=== PATIENT | female | born 1985 | race Caucasian/White ===

== ENCOUNTER 2017-02-08 15:27 | Observation (INO) | payer BC ==
[2017-02-08] MEDS ORDERED: Acetaminophen 500 MG Tab PO ONE (17:00)
== END 2017-02-08 16:54 | disposition home or self-care (01) ==
LOC: MW.OBCHECK 15:27 → MW.OB 15:29 → MW.OBCHECK 15:35
PROVIDERS: ADMIT Obstetrics & Gynecology; ATTEND Obstetrics & Gynecology
DX: O26.892 Other specified pregnancy related conditions, second trimester (principal); R51 Headache; R10.84 Generalized abdominal pain
CPT/HCPCS: 59025; 81003; A9270; G0378

== ENCOUNTER 2017-05-09 04:40 | Inpatient (IN) | payer BC ==
[2017-05-09] MEDS ORDERED: Nalbuphine 10 MG/1 ML Vial IVPUSH PRN (05:16)
[2017-05-09] MEDS ORDERED: Methylergonovine 0.2 MG/1 ML Amp IM PRN (05:16)
[2017-05-09] MEDS ORDERED: Carboprost Tromethamine 250 MCG/1 ML Amp IM PRN (05:16)
[2017-05-09] MEDS ORDERED: Water For Irrigation,Sterile 1,000 ML Container IRR PRN (05:16)
[2017-05-09] MEDS ORDERED: Sodium Chloride 0.9% 10 ML Syringe FLUSH PRN (05:16)
[2017-05-09] MEDS ORDERED: Sodium Chloride 0.9% 2.5 ML Syringe FLUSH PRN (05:16)
[2017-05-09] MEDS ORDERED: Lidocaine 1% 50 ML MDV INJECT PRN (05:16)
[2017-05-09] MEDS ORDERED: Misoprostol 200 MCG Tab PO PRN (05:16)
[2017-05-09] MEDS ORDERED: Terbutaline 1 MG/ML SDV SUBCUT PRN (05:16)
[2017-05-09] MEDS ORDERED: Oxytocin/Lactated Ringers 30 UNIT/500 ML BAG IV SCH (05:30)
[2017-05-09] MEDS: Lactated Ringers 1,000 ML IV SCH ×3 (05:45→20:49)
[2017-05-09] MEDS: Oxytocin/Lactated Ringers 30 UNIT/500 ML BAG IV SCH (06:12)
[2017-05-09] MEDS: Butorphanol 1 MG/ML SDV IVPUSH PRN ×2 (16:08→19:29)
--- NOTE | 2017-05-09 22:26 | PCM.PREANE ---
Preanesthetic Assessment - Anesthesia/Transfusion/Family Hx Anesthesia History: Prior Anesthesia Without Reaction Transfusion History: No Prior Transfusion(s) - Review of Systems General: No Symptoms Pulmonary: No Symptoms Cardiovascular: No Symptoms Gastrointestinal: No symptoms Neurological: No Symptoms Other: Reports: None - Physical Assessment Height: 5 ft 9 in Weight: 97.522 kg ASA Class: 2 Mental Status: Alert & Oriented x3 Airway Class: Mallampati = 2 Dentition: Reports: Normal Dentition Thyro-Mental Finger Breadths: 3 Mouth Opening Finger Breadths: 3 ROM/Head Extension: Full Lungs: Clear to auscultation, Normal respiratory effort Cardiovascular: Regular Rate, Regular Rhythm - Lab Values: Laboratory Last Values WBC 12.63 K/uL (4.0-11.0) H 05/09/17 05:32 RBC 3.82 M/uL (4.30-5.90) L 05/09/17 05:32 Hgb 12.4 g/dL (12.0-16.0) 05/09/17 05:32 Hct 35.7 % (36.0-46.0) L 05/09/17 05:32 MCV 93.5 fL (80.0-98.0) 05/09/17 05:32 MCH 32.5 pg (27.0-32.0) H 05/09/17 05:32 MCHC 34.7 g/dL (31.0-37.0) 05/09/17 05:32 RDW Std Deviation 43.6 fl (28.0-62.0) 05/09/17 05:32 RDW Coeff of Bernadine 13 % (11.0-15.0) 05/09/17 05:32 Plt Count 222 K/uL (150-400) 05/09/17 05:32 MPV 9.70 fL (7.40-12.00) 05/09/17 05:32 Nucleated RBC % 0.0 /100WBC 05/09/17 05:32 Nucleated RBCs # 0 K/uL 05/09/17 05:32 Blood Type O NEGATIVE 05/09/17 05:32 Antibody Screen NEGATIVE 05/09/17 05:32 - Allergies Allergies/Adverse Reactions: Allergies Allergy/AdvReac Type Severity Reaction Status Date / Time cefaclor [From [facility]] Allergy Anaphylactic Verified 02/08/17 15:35 Shock - Acknowledgements Anesthesia Type Planned: Epidural Pt an Appropriate Candidate for the Planned Anesthesia: Yes Alternatives and Risks of Anesthesia Discussed w Pt/Guardian: Yes Pt/Guardian Understands and Agrees with Anesthesia Plan: Yes PreAnesthesia Questionnaire HEENT History: Reports: None Cardiovascular History: Reports: None Respiratory History: Reports: None Gastrointestinal History: Reports: GERD Genitourinary History: Reports: None SHIFT SUPERINTENDENT History: Reports: : 4 Para: 5 LMP (Approximate): Musculoskeletal History: Reports: None Neurological History: Reports: None Psychiatric History: Reports: Depression Endocrine/Metabolic History: Reports: Obesity/BMI 30+ Hematologic History: Reports: None Immunologic History: Reports: None Oncologic (Cancer) History: Reports: None Dermatologic History: Reports: None - Infectious Disease History Infectious Disease History: Reports: None - SUBSTANCE USE Smoking Status *Q: Current Every Day Smoker Tobacco Use Within Last Twelve Months: Cigarettes Second Hand Smoke Exposure: Yes Recreational Drug Use History: No - CURRENT (IN HOUSE) MEDS Current Meds: Current Medications Butorphanol Tartrate (Stadol) 1 mg IVPUSH ASDIRECTED PRN PRN Reason: Pain Last Admin: 05/09/17 19:29 Dose: 1 mg Carboprost Tromethamine (Hemabate Ds) 250 mcg IM ASDIRECTED PRN PRN Reason: Post Hemorrhage Lactated Ringer's (Ringers, Lactated) 1,000 mls @ 150 mls/hr IV ASDIRECTED MEÑO Last Admin: 05/09/17 20:49 Dose: 150 mls/hr Oxytocin/Lactated Ringer's (Pitocin In Lr 30 Units/500 Ml) 30 unit in 500 mls @ 2 mls/hr IV TITRATE MEÑO; 2 MUNITS/MIN PRN Reason: Protocol Last Titration: 05/09/17 20:55 Dose: 38 munits/min, 38 mls/hr Lidocaine HCl (Xylocaine 1%) 50 ml INJECT .ONCE PRN PRN Reason: Laceration repair Methylergonovine Maleate (Methergine) 0.2 mg IM ASDIRECTED PRN PRN Reason: Post Hemorrhage Misoprostol (Cytotec) 200 mcg PO .ONCE PRN PRN Reason: Post Hemorrhage Nalbuphine HCl (Nubain) 10 mg IVPUSH ASDIRECTED PRN PRN Reason: Pain (severe 7-10) Stop: 05/11/17 05:17 Sodium Chloride (Saline Flush) 10 ml FLUSH ASDIRECTED PRN PRN Reason: Keep Vein Open Sodium Chloride (Saline Flush) 2.5 ml FLUSH ASDIRECTED PRN PRN Reason: Keep Vein Open Sterile Water (Sterile Water For Irrigation) 1,000 ml IRR ASDIRECTED PRN PRN Reason: delivery Terbutaline Sulfate (Brethine) 0.25 mg SUBCUT ASDIRECTED PRN PRN Reason: Tacysystole Discontinued Medications Oxytocin/Lactated Ringer's (Pitocin In Lr 30 Units/500 Ml) 30 unit in 500 mls @ 999 mls/hr IV ASDIRECTED MEÑO PRN Reason: 999 MUNITS/MIN Stop: 05/09/17 06:01
[2017-05-09] MEDS ORDERED: fentaNYL 100 MCG/2 ML SDV ONE (22:29)
[2017-05-09] MEDS ORDERED: Ropivacaine HCl/PF 100 ML ONE (22:29)
[2017-05-10] MEDS: Oxytocin/Lactated Ringers 30 UNIT/500 ML BAG IV SCH (02:55)
[2017-05-10] MEDS ORDERED: Bupivacaine 0.5% 10 ML SDV ONE ×2 (04:53→06:59)
[2017-05-10] MEDS ORDERED: fentaNYL 100 MCG/2 ML SDV ONE (06:59)
[2017-05-10] MEDS ORDERED: Ropivacaine HCl/PF 100 ML ONE (06:59)
[2017-05-10] MEDS ORDERED: Ondansetron 4 MG/2 ML SDV IVPUSH PRN (07:14)
[2017-05-10] MEDS ORDERED: Bupivacaine 0.25% 30 ML SDV EPIDUR ONE (10:29)
[2017-05-10] MEDS ORDERED: Ibuprofen 800 MG Tab ONE (11:11)
[2017-05-10] MEDS ORDERED: Docusate Sodium 100 MG Cap PO PRN (11:18)
[2017-05-10] MEDS ORDERED: Acetaminophen 500 MG Tab PO PRN ×2 (11:18)
[2017-05-10] MEDS ORDERED: Ibuprofen 400 MG Tab PO PRN (11:18)
[2017-05-10] MEDS ORDERED: Benzocaine/Menthol 20%-0.5% Spray 78 GM Cannister TOP PRN (11:18)
[2017-05-10] MEDS ORDERED: Bisacodyl 10 MG Supp RECTAL PRN (11:18)
[2017-05-10] MEDS ORDERED: Witch Hazel Medicated Pads 40/Jar TOP PRN (11:18)
[2017-05-10] MEDS ORDERED: oxyCODONE 5 MG Tab PO PRN (11:18)
[2017-05-10] MEDS ORDERED: Lanolin 100% Cream 7 GM Tube TOP PRN (11:18)
--- NOTE | 2017-05-10 16:00 | OR ---
SURGEON: Chiquis Belcher M.D. DATE OF PROCEDURE: 05/10/2017 PREOPERATIVE DIAGNOSES: 1. 39-week intrauterine . 2. Maternal exhaustion. POSTOPERATIVE DIAGNOSES: 1. 39-week intrauterine . 2. Maternal exhaustion. PROCEDURE: Vacuum-assisted vaginal delivery, intact perineum. ESTIMATED BLOOD LOSS: 300 mL. ANESTHESIA: Epidural. COMPLICATIONS: Unknown. FINDINGS: Term male. scores of 7 at 1 minute and 9 at 5 minutes. Weight of 8 pounds 2 ounces. Spontaneous delivery, intact placenta, 3-vessel cord. DISPOSITION: to nursery and mom in LDRP, stable. DESCRIPTION OF PROCEDURE Vanessa is a 32-year-old, G4, P5, at 39 weeks' gestational age, who presented on the morning of 05/09/2017 for elective induction of labor under Dr. Conway's care. She was admitted with Pitocin induction and had amniotomy performed at approximately 1 p.m. I assumed care of the patient in the afternoon of 05/10/2017. Cervix was fairly thick to begin with and took some time to actually get the cervix ripe and the patient in active labor. She actually became more actively in labor after midnight. She had received an epidural and was comfortable with this. heart tones were in the 120s with variability. The following morning, the patient was found to be complete, 100% effaced, +2 station. Shortly before 9 a.m., she began pushing efforts and was able to push to a +2 station, but had difficulty delivering past this. She pushed for nearly 2 hours and was not able to move past the +2 station. She was requesting assistance with an operative vaginal delivery. I discussed the risks of vacuum- assisted vaginal delivery including the risks for infant cephalohematoma, intracranial bleeding, and increased risk for maternal vaginal trauma. The infant was felt to be MELANIA. Weight of approximately 3900 grams by Rai. Sagittal suture was able to be palpated. The vacuum was now positioned along with scalp. With the next push, I was able to insufflate the vacuum to within the green zone and with point of flexion, was able to deliver the 's head to a +5 station. We released the vacuum. Remainder of the head was delivered followed by anterior shoulder with suprapubic pressure being applied as it did not readily deliver with rapid position also been applied, and the head of bed flattened. The posterior shoulder was then delivered and remainder of the body. 's oropharynx and nares were bulb suctioned. Cord was clamped x2 and cut. Infant was handed off to attending nursing staff. Cord arterial, cord venous, cord blood sampling was obtained. Light suprapubic pressure was applied while the placenta was delivered spontaneously intact. Vigorous fundal uterine massage was then applied while 30 units of Pitocin was delivered in 500 mL IV fluid. Upon inspection of cervix, vaginal sidewalls, and perineum, these were found to be intact. The patient has tolerated this procedure well. She will remain in LDRP in stable condition and to nursery. CLARK / TRUE /[id number]
[2017-05-10] MEDS: Ibuprofen 800 MG Tab PO PRN (16:09)
[2017-05-11] MEDS: Ibuprofen 800 MG Tab PO PRN ×2 (00:23→08:36)
--- NOTE | 2017-05-11 11:22 | PCM.PNPP ---
- General Info Date of Service: 05/11/17 Functional Status: Reports: pain controlled, tolerating diet, ambulating, urinating - Review of Systems General: Reports: Fatigue. Denies: Fever, Weakness Pulmonary: Denies: shortness of breath Cardiovascular: Denies: Chest Pain, Palpitations, Lightheadedness Gastrointestinal: Denies: Abdominal pain, Nausea, Vomiting Genitourinary: Denies: flank pain Skin: Reports: no symptoms Psychiatric: Reports: no symptoms - General Info Date of Service: 05/11/17 - Patient Data Vital Signs - most recent: Last Vital Signs Temp 36.3 C 05/11/17 10:31 Pulse 100 05/11/17 10:31 Resp 16 05/11/17 10:31 BP 121/59 L 05/11/17 10:31 Pulse Ox 96 05/11/17 10:31 Weight - most recent: 97.522 kg I&O - last 24 hours: Intake & Output 05/10/17 05/11/17 05/11/17 22:59 06:59 14:59 Intake Total 2 Balance 2 Lab Results - last 24 hrs: Laboratory Results - last 24 hr 05/10/17 05/11/17 Range/Units 12:08 05:25 Hgb 11.2 L (12.0-16.0) g/dL Hct 31.5 L (36.0-46.0) % Antibody Screen NEGATIVE Screen NEGATIVE RhIG Candidate? YES Rhogam Indicated YES, BABY RH POS H Med Orders - Current: Current Medications Acetaminophen (Tylenol Extra Strength) 500 mg PO Q4H PRN PRN Reason: Pain Acetaminophen (Tylenol Extra Strength) 1,000 mg PO Q4H PRN PRN Reason: Pain Benzocaine/Menthol (Dermoplast Pain Relief 20%-0.5% [place]) 78 gm TOP ASDIRECTED PRN PRN Reason: Perineal Comfort Measure Bisacodyl (Dulcolax) 10 mg RECTAL .ONCE PRN PRN Reason: Constipation Carboprost Tromethamine (Hemabate Ds) 250 mcg IM ASDIRECTED PRN PRN Reason: Post Hemorrhage Docusate Sodium (Colace) 100 mg PO BID PRN PRN Reason: Constipation Last Admin: 05/11/17 08:36 Dose: 100 mg Emollient Ointment (Lansinoh Hpa) 0 gm TOP ASDIRECTED PRN PRN Reason: Sore Nipples Lactated Ringer's (Ringers, Lactated) 1,000 mls @ 150 mls/hr IV ASDIRECTED MEÑO Last Admin: 05/09/17 20:49 Dose: 150 mls/hr Oxytocin/Lactated Ringer's (Pitocin In Lr 30 Units/500 Ml) 30 unit in 500 mls @ 2 mls/hr IV TITRATE MEÑO; 2 MUNITS/MIN PRN Reason: Protocol Last Titration: 05/10/17 06:26 Dose: 6 munits/min, 6 mls/hr Ibuprofen (Motrin) 400 mg PO Q4H PRN PRN Reason: Pain Ibuprofen (Motrin) 800 mg PO Q6H PRN PRN Reason: Pain Last Admin: 05/11/17 08:36 Dose: 800 mg Methylergonovine Maleate (Methergine) 0.2 mg IM ASDIRECTED PRN PRN Reason: Post Hemorrhage Misoprostol (Cytotec) 200 mcg PO .ONCE PRN PRN Reason: Post Hemorrhage Ondansetron HCl (Zofran) 4 mg IVPUSH Q4H PRN PRN Reason: Nausea/Vomiting Last Admin: 05/10/17 09:43 Dose: 4 mg Oxycodone HCl (Oxycodone) 5 mg PO Q2H PRN PRN Reason: Pain Sodium Chloride (Saline Flush) 2.5 ml FLUSH ASDIRECTED PRN PRN Reason: Keep Vein Open Witarturo Tamez (Tucks) 1 pad TOP ASDIRECTED PRN PRN Reason: comfort care Discontinued Medications Bupivacaine HCl (Sensorcaine-Mpf 0.5%) Confirm Administered Dose 10 ml .ROUTE .STK-MED ONE Stop: 05/10/17 04:54 Bupivacaine HCl (Sensorcaine-Mpf 0.5%) Confirm Administered Dose 10 ml .ROUTE .STK-MED ONE Stop: 05/10/17 07:00 Bupivacaine HCl (Marcaine 0.25%) 100 ml EPIDUR ONETIME ONE Stop: 05/10/17 10:30 Butorphanol Tartrate (Stadol) 1 mg IVPUSH ASDIRECTED PRN PRN Reason: Pain Last Admin: 05/09/17 19:29 Dose: 1 mg Fentanyl (Sublimaze) Confirm Administered Dose 100 mcg .ROUTE .STK-MED ONE Stop: 05/09/17 22:30 Fentanyl (Sublimaze) Confirm Administered Dose 100 mcg .ROUTE .STK-MED ONE Stop: 05/10/17 07:00 Oxytocin/Lactated Ringer's (Pitocin In Lr 30 Units/500 Ml) 30 unit in 500 mls @ 999 mls/hr IV ASDIRECTED MEÑO PRN Reason: 999 MUNITS/MIN Stop: 05/09/17 06:01 Ropivacaine (Naropin 0.2%) Confirm Administered Dose 100 mls @ as directed .ROUTE .STK-MED ONE Stop: 05/09/17 22:30 Ropivacaine (Naropin 0.2%) Confirm Administered Dose 100 mls @ as directed .ROUTE .STK-MED ONE Stop: 05/10/17 07:00 Ibuprofen (Motrin) Confirm Administered Dose 800 mg .ROUTE .STK-MED ONE Stop: 05/10/17 11:12 Lidocaine HCl (Xylocaine 1%) 50 ml INJECT .ONCE PRN PRN Reason: Laceration repair Nalbuphine HCl (Nubain) 10 mg IVPUSH ASDIRECTED PRN PRN Reason: Pain (severe 7-10) Stop: 05/11/17 05:17 Sodium Chloride (Saline Flush) 10 ml FLUSH ASDIRECTED PRN PRN Reason: Keep Vein Open Sterile Water (Sterile Water For Irrigation) 1,000 ml IRR ASDIRECTED PRN PRN Reason: delivery Last Admin: 05/10/17 09:43 Dose: 1,000 ml Terbutaline Sulfate (Brethine) 0.25 mg SUBCUT ASDIRECTED PRN PRN Reason: Tacysystole - Infant Interaction Support Person: Significant Other - Recovery Exam Fundal Tone: Firm Fundal Level: 1 Fingerbreadths Below Umbilicus Fundal Placement: Midline Lochia Amount: Scant Lochia Color: Rubra/Red Perineum Description: Intact, Minimal Bruising/Swelling Bladder Status: Voiding Urinary Elimination: Voided - Exam General: alert, oriented Lungs: Normal respiratory effort Cardiovascular: Regular Rate, Regular Rhythm Abdomen: soft, no tenderness. No: CVA tenderness Extremities: no calf tenderness Skin: warm, dry, intact Psy/Mental Status: alert, normal affect - Problem List & Annotations (1) Vaginal delivery SNOMED Code(s): 213108479 Code(s): O80 - ENCOUNTER FOR FULL-TERM UNCOMPLICATED DELIVERY Status: Acute Current Visit: Yes - Problem List Review Problem List Initiated/Reviewed/Updated: Yes - My Orders Last 24 Hours: My Active Orders 05/10/17 11:18 May Shower [RC] ASDIRECTED Up ad Maureen [RC] ASDIRECTED Vital Signs [RC] PER UNIT ROUTINE Acetaminophen [Tylenol Extra Strength] 1,000 mg PO Q4H PRN Acetaminophen [Tylenol Extra Strength] 500 mg PO Q4H PRN Benzocaine/Menthol [Dermoplast Pain Relief 20%-0.5% [place]] 78 gm TOP ASDIRECTED PRN Bisacodyl [Dulcolax] 10 mg RECTAL .ONCE PRN Docusate Sodium [Colace] 100 mg PO BID PRN Ibuprofen [Motrin] 400 mg PO Q4H PRN Ibuprofen [Motrin] 800 mg PO Q6H PRN Lanolin [Lansinoh HPA] See Dose Instructions TOP ASDIRECTED PRN Witch Joi [Tucks] 1 pad TOP ASDIRECTED PRN oxyCODONE 5 mg PO Q2H PRN Assess Lochia [WOMSER] Per Unit Routine Assess Uterine Involution [WOMSER] Per Unit Routine Peripheral IV Discontinue [OM.PC] Routine 05/10/17 Lunch Regular Diet [DIET] 05/11/17 11:20 Ready for Discharge [RC] PER UNIT ROUTINE - Assessment Assessment:: PPD 1 status post VAVD - Plan Plan:: Patient is doing well, would like to go home. Discharge instructions reviewed. Infection and bleeding warnings reviewed. Follow up at [facility] 6 weeks.
--- NOTE | 2017-05-11 11:41 | PCM48HPAN ---
Post Anesthesia Note - EVALUATION WITHIN 48HRS OF ANESTHETIC Vital Signs in Normal Range: Yes Patient Participated in Evaluation: Yes Respiratory Function Stable: Yes Airway Patent: Yes Cardiovascular Function Stable: Yes Hydration Status Stable: Yes Pain Control Satisfactory: Yes Nausea and Vomiting Control Satisfactory: Yes Mental Status Recovered: Yes
[2017-05-11 16:08] VITALS: BP 116/54
== END 2017-05-11 16:45 | disposition home or self-care (01) | DRG 560 ==
LOC: MW.OBCHECK 04:40 → MW.OB 04:43 → MW.OBCHECK 05:16 → MW.OB 05:16 → OBSVTOIN 05-10 10:35 → MW.OB 05-10 16:56
PROVIDERS: ADMIT Obstetrics & Gynecology; ATTEND Obstetrics & Gynecology
PROC: 10D07Z6 Extraction of Products of Conception, Vacuum, Via Natural or Artificial Opening (ICD-10-PCS; principal; 2017-05-10)
PROC: 3E033VJ Introduction of Other Hormone into Peripheral Vein, Percutaneous Approach (ICD-10-PCS; 2017-05-10)
PROC: 10907ZC Drainage of Amniotic Fluid, Therapeutic from Products of Conception, Via Natural or Artificial Opening (ICD-10-PCS; 2017-05-10)
DX: O75.81 Maternal exhaustion complicating labor and delivery (principal); O66.5 Attempted application of vacuum extractor and forceps; Z3A.39 39 weeks gestation of pregnancy; Z37.0 Single live birth
CPT/HCPCS: 36415; 59409; 85014; 85018; 85027; 85460; 86850; 86900; 86901; A9270-GY; J0595; J2405; J2790; J2795; J3010; J7120